=== PATIENT | female | born 1955 | race Caucasian/White ===

== ENCOUNTER 2017-11-12 18:28 | Inpatient (IN) | payer MEDICAID ==
[~2017-11-12] VITALS: Ht 165.1 cm; Wt 66.7 kg
[2017-11-12 18:32] VITALS: BP 111/49
[2017-11-12] MEDS ORDERED: NORCO 10-325 T1 EACH PO (18:40)
[2017-11-12] MEDS ORDERED: PROAIR RESPICL90 MCG INJECTION (18:41)
[2017-11-12 18:47] LABS: ABSOLUTE EOSINOPHILS 0.1 thou/uL (0.0-0.7); ABSOLUTE MONOCYTES 0.6 thou/uL (0.0-1.2); ABSOLUTE NEUTROPHILS 5.2 thou/uL (1.6-8.1); BASOPHILS 0.4 %; EOSINOPHILS 1.7 %; HEMOGLOBIN 10.4 gm/dL (12.0-15.0); LYMPHOCYTES 24.9 %; MCH 31.2 pg (26.0-34.0); MCHC 33.6 g/dL (28.0-37.0); MCV 92.7 fL (80.0-100.0); MONOCYTES 7.8 %; MPV 7.1 fl. (7.2-11.1); NUCLEATED RBCS 0 /100WBC; PLATELET COUNT* 218 thou/uL (150-400); POLYS 65.2 %; RBC 3.35 mil/uL (4.20-5.00); WBC 7.9 thou/uL (4.0-11.0)
[2017-11-12 19:02] LABS: ANION GAP 5 mmol/L (7-16); BUN 15 mg/dL (7-18); CALCIUM 7.9 mg/dL (8.5-10.1); CHLORIDE 103 mmol/L (98-107); CO2 30 mmol/L (21-32); CREATININE 1.1 mg/dL (0.6-1.3); GLUCOSE 89 mg/dL (70-99); POTASSIUM 4.1 mmol/L (3.5-5.1); SODIUM 138 mmol/L (136-145)
[2017-11-12 19:02] LABS: URINE BILIRUBIN NEGATIVE (Negative); URINE BLOOD 2+ (Negative); URINE CLARITY SL CLOUDY; URINE COLOR YELLOW; URINE GLUCOSE-RANDOM NEGATIVE (Negative); URINE KETONES NEGATIVE (Negative); URINE LEUKOCYTES-REFLEX 3+ (Negative); URINE NITRITE-REFLEX POSITIVE (Negative); URINE PROTEIN 1+ (Negative); URINE SPECIFIC GRAVITY 1.025 (1.005-1.030); URINE UROBILINOGEN 0.2 E.U./dl (0.2-1.0)
[2017-11-12 19:04] LABS: ACETAMINOPHEN < 2 ug/mL (10-30); APTT 33.6 Seconds (25.0-31.3); INR 1.1; PROTIME 10.5 Seconds (9.20-11.50); SALICYLATE < 2.8 mg/dL (2.8-20.0)
[2017-11-12 19:05] LABS: ALCOHOL < 10 mg/dL (<10)
[2017-11-12 19:12] LABS: CRYSTALS None Seen /LPF (None Seen); HYALINE CASTS 0-3 Few /LPF (None Seen); MUCUS 0-3 Light strn/LPF (None Seen); SQUAMOUS >10 Many /LPF (0-3); URINE RBC 0-2 Rare /HPF (0-2); URINE WBC-REFLEX >25 Many /HPF (0-5)
[2017-11-12 19:13] LABS: BACTERIA-REFLEX >30 Many /HPF (None Seen)
[2017-11-12 19:17] LABS: AMP/METHAMP Negative (Negative); BARBITURATES Negative (Negative); BENZODIAZEPINES Negative (Negative); COCAINE Negative (Negative); METHADONE Negative (Negative); OPIATES POSITIVE (Negative); PCP Negative (Negative); THC POSITIVE (Negative)
[2017-11-12 19:20] LABS: ALBUMIN 2.4 g/dL (3.4-5.0); ALKALINE PHOSPHATASE 104 U/L (46-116); CK-MB MASS < 0.5 ng/mL (<0.5-3.6); NT-PRO BRAIN NAT PEPTIDE 169 pg/mL (<300); SGOT 10 U/L (15-37); SGPT 10 U/L (30-65); TOTAL BILIRUBIN 0.3 mg/dL (<0.1-1.0); TOTAL PROTEIN 5.9 g/dL (6.4-8.2); TROPONIN-I LEVEL <0.06 ng/mL (<0.06)
[2017-11-12] MEDS ORDERED: CLONAZEPAM 1 MG1 M1 PO (20:09)
[2017-11-12] MEDS ORDERED: FLEXERIL PO (20:09)
[2017-11-12] MEDS ORDERED: BUSPIRONE HCL10 MG PO (20:09)
[2017-11-12] MEDS ORDERED: MELATONIN5 M1 PO (20:10)
[2017-11-12] MEDS ORDERED: QUETIAPINE FUM100 MG PO (20:10)
[2017-11-12 21:08] LABS: BE -0.8 mmol/L (-2 to +3); PCO2 45.9 mmHg (35.0-45.0); PO2 84.1 mmHg (75.0-100.0); pH 7.354 (7.340-7.450)
[2017-11-12 21:19] VITALS: BP 125/51
[2017-11-12 22:00] VITALS: BP 131/70
[2017-11-12] MEDS ORDERED: LACTAID FAS9000 UNIT PO (22:29)
[2017-11-12] MEDS ORDERED: METFORMIN HCL500 MG PO (23:28)
[2017-11-12] MEDS ORDERED: NEURONTIN600 MG PO (23:29)
[2017-11-12] MEDS ORDERED: LEXAPRO20 MG PO (23:29)
[2017-11-12] MEDS ORDERED: TRAMADOL 50 MG50 MG PO (23:29)
[2017-11-12] MEDS ORDERED: NORVASC2.5 MG PO (23:30)
[2017-11-12] MEDS ORDERED: CARVEDILOL3.125 MG PO (23:30)
[2017-11-12] MEDS ORDERED: TRAZODONE HCL100 MG PO (23:31)
[2017-11-12] MEDS ORDERED: OMEPRAZOLE40 MG PO (23:31)
[2017-11-12] MEDS ORDERED: NORTRIPTYLINE H50 MG PO (23:32)
--- NOTE | 2017-11-13 06:35 | NUR ---
ASSESSMENT COMPLETE. PT ADMITTED WITH AMS, UTI, AND CONSTIPATION. PT FORGETFUL AND CONFUSED. FAMILY STATES PATIENT HAS BECOME INCREASINGLY FORGETFUL AND HAS BEEN TAKING HOME MEDS INCORRECTLY. CASE MANAGEMENT CONSULTED. PT LIVES HOME ALONE AT THIS TIME. PT REPORTS CHRONIC BACK PAIN, AND PAIN WHILE URINATING. CT HEAD IN ER WAS NEGATIVE. PT HAS IV FLUIDS INFUSING, IV LEVAQUIN GIVEN FOR UTI. PT IS ON ROOM AIR WITH [place] SATS. SKIN W/D/I. PT IS FALL RISK, BED ALARM ON. TURNS SELF IN BED. SEE ASSESSMENT AND VITALS FOR OTHER DETAILS. CALL LIGHT WITHIN REACH, WILL CONTINUE PLAN OF CARE
[2017-11-13 08:20] VITALS: BP 121/72
--- NOTE | 2017-11-13 11:43 | EKG ---
[place] [address] ELECTROCARDIOGRAM REPORT Name: JAYCE HUNT Room: [address] IN [facility]#: [id number] Admission: 11/12/17 Attend Phys: Jaiden Trammell Discharge: Date of : 57 Report #: [id number] THIS REPORT FOR: //name// [facility] ED Test Date: 2017-11-12 Test Time: 19:34:28 Pat Name: JAYCE HUNT Department: Room: Gender: Third Helper: : 1955 Requested By: Mayur Garcia Order Number: [id number] MD: Jimmie Solo Measurements Intervals [place] Rate: 60 P: -15 FL: 133 QRS: 45 QRSD: 108 T: 63 QT: 406 QTc: 406 Interpretive Statements Sinus rhythm No previous ECG available for comparison Electronically Signed On 11-13-2017 11:43:16 CDT by Jimmie Solo [email or web address] <ELECTRONICALLY SIGNED> By: Jimmie Solo MD, [facility] 11/13/17 1143 1934 193 Jimmie Solo MD, FACC /EPI
[2017-11-13 12:00] VITALS: BP 132/70; BP 170/74; BP 171/75
--- NOTE | 2017-11-13 16:16 | NUR ---
PT.IN BED, TALKING WITH SON AND HIS . THEY ARE FROM [place], [place]. PT.WAS UP IN THIS AREA VISITING BROTHER IN LAW AND FELL LAST EVEING. SHE HAD ALSO BEEN HAVING AMS FOR 2 DAYS. SHE SAID SHE LIVES ALONE IN A [address] WHEEL. HER SON SAID IT'S LIKE A [facility] WHERE PEOPLE COME TO CAMP. SHE DRIVES. IS INDPENDENT AT HOME. SHE HAS O2 FROM [facility], [place] THAT SHE USES PRN AND A CANE. SON LIVES ABOUT AN HR.AWAY FROM HER. DISCUSSED HOME HEALTH INITIALLY FOR PT. AND POSSIBLY APPLYING FOR A PSYCHOLOGIST COUNSELING THROUGH HER MEDICAID. WILL LOOK INTO INFORMATION AND SEE PT.AGAIN TOMORROW.
[2017-11-13 16:25] VITALS: BP 138/51
--- NOTE | 2017-11-13 17:30 | NUR ---
PATIENT HAS BEEN A/O X 4 THIS SHIFT, SLIGHTLY FORGEFTUL AT TIMES. PATIENT UP WITH STAND BY ASSIST TO BATHROOM. UP TO CHAIR FOR ALL MEALS. ORTHOSTATIC BPs COMPLETED. PATIENT SEEN BY ORTHO THIS SHIFT. HIP XRAY COMPLETED. SEEN BY POST HOLE DIGGER THIS SHIFT AND SUPPLEMENTS ENCOURAGED. PATIENT MEDICATED FOR CHRONIC PAIN X 2 TODAY WITH RELIEF. PATIENT AND FAMILY UPDATED ON PLAN OF CARE FOR THIS SHIFT. HOURLY ROUNDING COMPLETED. CALL LIGHT WITHIN REACH. WILL CONTINUE WITH PLAN OF CARE.
[2017-11-13 20:30] VITALS: BP 141/57
[2017-11-14 04:40] LABS: HEMATOCRIT 33.9 % (37.0-47.0); HEMOGLOBIN 11.5 gm/dL (12.0-15.0); MCH 30.8 pg (26.0-34.0); MCHC 33.8 g/dL (28.0-37.0); MCV 91.2 fL (80.0-100.0); MPV 7.5 fl. (7.2-11.1); RBC 3.72 mil/uL (4.20-5.00); RDW-CV 12.6 % (10.5-14.5); WBC 6.6 thou/uL (4.0-11.0)
[2017-11-14 04:57] LABS: CALCIUM 8.6 mg/dL (8.5-10.1); CREATININE 0.8 mg/dL (0.6-1.3); MAGNESIUM 1.7 mg/dL (1.8-2.4); POTASSIUM 3.8 mmol/L (3.5-5.1)
--- NOTE | 2017-11-14 05:48 | NUR ---
PATIENT SLEPT MOST OF THE NIGHT. IV REMAINS SALINE LOCKED. PATIENT WAS GIVEN PAIN MEDICINE ONCE THIS SHIFT. PATIENT WAS BEEN ALERT AND ORIENTED THIS SHIFT. WILL CONTINUE TO MONITOR.
[2017-11-14 08:40] VITALS: BP 138/78
[2017-11-14] MEDS ORDERED: CEFUROXIME250 MG PO (10:43)
[2017-11-14 13:09] VITALS: BP 138/78
--- NOTE | 2017-11-14 15:06 | NUR ---
P.T. ORDERS RECEIVED 11/13/17. PT HAS ORDERS FOR DISCHARGE HOME TODAY (11/14/17). NSG REPORTS PT HAS BEEN UP AD ASA IN [place] W/O ASSIST. EVAL DEFERRED.
--- NOTE | 2017-11-14 15:08 | NUR ---
PATIENT GIVEN DISCHARGE INSTRUCTIONS AND PRESCRIPTIONS AT THIS TIME. PATIENT AND DAUGHTER IN LAW VERBALIZED IN REGARDS TO HOME MEDICATIONS AND NEW MEDICATIONS. PATIENT'S IV REMOVED. PATIENT ESCORTED OFF NURSING UNIT VIA WHEELCHAIR WITH PATIENT'S DAUGHER IN LAW AND BELONGINGS.
--- NOTE | 2017-12-04 11:41 | CON ---
[address] [address] CONSULTATION Name: JAYCE HUNT Room: [address]#: [id number] Admission: 11/12/17 Attend Phys: Jaiden Trammell Discharge: 11/14/17 Date of : 57 Report #: [id number] THIS REPORT FOR: //name// CC: MOUNIKA physician/PCP Reyes Victor DICTATED BY: Cain Amador DO DATE OF SERVICE: 11/13/2017 REASON FOR CONSULTATION: Bilateral hip pain. HISTORY OF PRESENT ILLNESS: The patient is a 62-year-old female with a complicated medical history. She has rheumatoid arthritis, known osteoarthritis, fibromyalgia, narcotic dependence, has had an opioid-induced constipation, as well as recent urinary tract infection. She states that she did have a recent fall; however, has been able to bear weight and get around with just some discomfort in her low back and buttock region with occasional pain in her left groin. Upon talking with her, she states that she is not having much pain right now and does not have much pain on exam and the pain that she has is chronic in nature. She denies any other acute complaints. PAST MEDICAL HISTORY: UTI, kidney stone, opioid-induced constipation, altered mental status, abdominal pain, hypertension, hypercholesterolemia, COPD, alopecia, chronic back pain. PAST SURGICAL HISTORY: None listed. FAMILY HISTORY: Noncontributory. SOCIAL HISTORY: Admits to tobacco use, a pack a day for 40 years. Admits to some recreational alcohol use, no illicit drug use. MEDICATIONS: See MAR. ALLERGIES: CODEINE, IODINE, LATEX, LIDOCAINE. REVIEW OF SYSTEMS: Twelve-point review of systems is otherwise negative except for the above-mentioned HPI. PHYSICAL EXAMINATION: GENERAL: Alert, oriented, in no acute distress. HEENT: Head normocephalic, atraumatic. Eyes: Extraocular motion intact. Ears are normal. Mouth mucosa moist. NECK: Supple. CARDIOVASCULAR: [place] [address] CONSULTATION Name: JAYCE HUNT Room: [address] IN .R.#: [id number] Admission: 11/12/17 Attend Phys: Jaiedn Trammell Discharge: 11/14/17 Date of : 57 Report #: [id number] ABDOMEN: Soft. MUSCULOSKELETAL: Examination of the bilateral hips demonstrates good hip range of motion. There is slight decreased internal rotation on the left compared to the right with some slight discomfort in her hip. Otherwise, log roll is negative bilaterally. Negative straight leg raise. Muscle strength is +5/5 in the bilateral lower extremities. Deep tendon reflexes +2/4 at L4 and S1. Sensation is intact in the superficial and deep peroneal nerve distributions, as well as the tibial nerve distribution. She does have some tenderness to palpation of low back on palpation. IMAGING: X-rays reviewed demonstrate saot-[id number]-cvaweupm joint space narrowing of her bilateral hips with some early signs of osteoarthritis of the hips. No fracture or other osseous abnormalities. IMPRESSION: 1. Mild bilateral hip degenerative joint disease. 2. Low back pain. 3. Opioid dependence. PLAN: At this time, there is no acute surgical intervention. We would recommend conservative care. She is getting around pain-free in her room currently and is essentially pain-free on exam. She does have some mild degenerative findings on her x-rays and does have a history of opioid dependence and some chronic back pain. Recommended physical therapy works with her on gait training to make sure she ambulates safely. In regards to the hip arthritis she does have, she may follow up as an outpatient for further workup should she have any issues. I do not believe that the pain and discomfort that she is having is coming from her hips based off physical exam and imaging. <ELECTRONICALLY SIGNED> By: Chucky Aj DO 12/04/17 1141 [id number] Aj DO /nt
== END 2017-11-14 15:10 | disposition home or self-care (01) | DRG 689 ==
LOC: M.ERS 18:28 → M.TBA-ER 20:38 → M.3W 20:38
PROVIDERS: Family Medicine; Internal Medicine; Personal Emergency Response Attendant; ADMIT Internal Medicine
DX: N30.91 Cystitis, unspecified with hematuria (principal); G92 Toxic encephalopathy; F11.20 Opioid dependence, uncomplicated; I10 Essential (primary) hypertension; M79.7 Fibromyalgia; M06.9 Rheumatoid arthritis, unspecified; M19.90 Unspecified osteoarthritis, unspecified site; F32.9 Major depressive disorder, single episode, unspecified; K59.00 Constipation, unspecified; F17.210 Nicotine dependence, cigarettes, uncomplicated; E78.00 Pure hypercholesterolemia, unspecified; J44.9 Chronic obstructive pulmonary disease, unspecified; G89.29 Other chronic pain; M54.9 Dorsalgia, unspecified; M16.0 Bilateral primary osteoarthritis of hip; G47.00 Insomnia, unspecified; F12.10 Cannabis abuse, uncomplicated; T50.905A Adverse effect of unspecified drugs, medicaments and biological substances, initial encounter; Y92.89 Other specified places as the place of occurrence of the external cause; Z88.6 Allergy status to analgesic agent; Z91.040 Latex allergy status; Z91.81 History of falling; Z87.442 Personal history of urinary calculi; Z79.2 Long term (current) use of antibiotics; Z79.899 Other long term (current) drug therapy